=== PATIENT | female | born 1965 | race American Indian/Alaskan Native ===

== ENCOUNTER 2017-04-05 00:58 | Emergency (ER) | payer BC ==
[2017-04-05] MEDS ORDERED: ATIVAN IV ONE (01:40)
[2017-04-05] MEDS ORDERED: ATIVAN ONE (01:40)
--- NOTE | 2017-04-05 02:01 | Emergency Department Report ---
HPI - General Time Seen by Provider: 04/05/17 01:42 - HPI HPI: This is a 52-year-old female presents to the emergency department with complaint of a dislodged tracheostomy tube. Patient has a keloid just under the tracheostomy and says that it was itching in that area and she went to scratch it and somehow it got dislodged. She tried putting it back in place, EMS then tried putting it back in place, but no one was successful. 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 If she sits forwards and holds the tracheostomy tube as far in as possible, she feels as if she is able to breathe fine. ED Past Medical Hx - Past Medical History Hx Hypertension: Yes Hx Diabetes: Yes Hx Arthritis: Yes Hx Asthma: Yes Hx COPD: No Additional medical history: neuropathy - Surgical History Additional Surgical History: thyroid - Social History Smoking Status: Never Smoker - Medications Home Medications: Home Medications Medication Instructions Recorded Confirmed Last Taken Type Acetaminophen [Acetaminophen 650 mg CA Q6H PRN #1 supp.rect 04/06/14 Unknown Rx SUPPOS] ALPRAZolam [Xanax TAB] 0.25 mg PO BID PRN #10 tablet 04/11/14 Unknown Rx ED Review of Systems ROS: Stated complaint: DISLODGED TRACH TUBE Other details as noted in HPI Comment: All other systems reviewed and negative Constitutional: denies: chills, fever Eyes: denies: eye pain, eye discharge, vision change ENT: other (dislodged tracheostomy tube). denies: ear pain Respiratory: shortness of breath. denies: cough, wheezing Cardiovascular: denies: chest pain, palpitations Gastrointestinal: denies: abdominal pain, nausea, diarrhea Genitourinary: denies: urgency, dysuria, discharge Musculoskeletal: denies: back pain, joint swelling, arthralgia Skin: denies: rash, lesions Neurological: denies: headache, weakness, paresthesias Physical Exam - Physical Exam Physical Exam: GENERAL: The patient is well-developed well-nourished. HENT: Normocephalic. Atraumatic. Patient has moist mucous membranes. EYES: Extraocular motions are intact. Pupils equal reactive to light bilaterally. NECK: Supple. Trachea is midline. There is a small keloid and/or soft tissue growth just underneath or growing into her tracheostomy. There is a size 4 Shiley tube that is partially inside of the tracheostomy. CHEST/LUNGS: Clear to auscultation. There is no respiratory distress noted. HEART/CARDIOVASCULAR: Regular. There is no tachycardia. There is no murmur. ABDOMEN: Abdomen is soft, nontender. Patient has normal bowel sounds. There is no abdominal distention. SKIN: Skin is warm and dry. NEURO: The patient is awake, alert, and oriented. The patient is cooperative. The patient has no focal neurologic deficits. The patient has normal speech. MUSCULOSKELETAL: There is no tenderness or deformity. There is no limitation range of motion. There is no evidence of acute injury. ED Course - Consultations Consultation #1: I spoke with Dr. Romero, airline customer service agent at [place], who feels it is prudent to send the patient to [facility] for further evaluation where they can scope the tracheostomy or at least do an evaluation and if she requires admission that her airline customer service agent goes there. The transfer center then spoke with a emergency physician who did not require physician to physician contact. 04/05/17 03:07 - Procedure Description Procedures done: Tracheostomy tube replacement was done. The patient was laid in a semi-recumbent position. Her 4 Shiley tube was taken out. I attempted to place a new uncuffed 4 Shiley tube but I was unable to find the tunnel into the trachea. We are able to find the tunnel using a bougie and a small catheter but just as the tunnel was found into the trachea, the patient started complaining of shortness of breath and appeared to have some hypoxia. This only lasted for a few seconds and the trachea was covered and the patient received a nonrebreather and her pulse ox went up to 100%. The patient was given some time and a small amount of Ativan and another attempt was made. This time the tunnel into the trachea appeared to be found and I was able to get the 4 Shiley uncuffed tube all the way in to it's hub. With this attempt there was no signs of hypoxia or shortness of breath. Placement into the trachea was confirmed with x-ray. There was a very mild amount of bleeding between the 2 attempts but otherwise no obvious complications and the patient tolerated this procedure well. ED Medical Decision Making - Radiology Data Radiology results: image reviewed interpreted by me: Chest x-ray shows a tracheostomy tube in appropriate position. No pneumothorax. Otherwise appears to be a normal examination. - Medical Decision Making The patient originally presented because her tracheostomy tube was partially dislodged. Vital signs were good and pulse ox was in the high 90s. As long as the patient was sitting forward and holding the tracheostomy tube she did not appear to have any shortness of breath. We confirmed that the tube was a 4 Shiley uncuffed and went to get a new one for her. As per the procedural section, 2 different attempts were made to get the tube replaced. The first one was unsuccessful as she began having some shortness of breath and transient hypoxia just as we found the tunnel into the trachea. She was then given a little bit of anxiety medication and supplemental oxygen. Second attempt appeared successful. However whenever the patient scratches her neck, moves her head, or coughs, D tracheostomy tube appears to dislodge to some extent. We asked if this was an appropriate size for her and she says that she had a 6 Shiley tube previously but there were complications with it and that she needs this size. X-ray appears to show that the tube is in appropriate place. However respiratory therapy attempted to bag the tracheostomy tube and had a lot of resistance. The patient had a little bit of stridor as well. For this reason I contacted primary otolaryngology and spoke to Dr. Romero who recommended transfer to the [facility] ER where she can be further evaluated and if admission is required, the patient's airline customer service agent goes to that facility. Patient was monitored in the emergency department after procedure up until she was transported and she had normal, stable vitals and did not appear in any distress. Critical Care Time: No Critical care attestation.: If time is entered above; I have spent that time in minutes in the direct care of this critically ill patient, excluding procedure time. ED Disposition Clinical Impression: Encounter for tracheostomy tube change, Complication of tracheostomy tube Hypertension Qualifiers: Hypertension type: essential hypertension Qualified Code(s): I10 - Essential ( primary) hypertension Disposition: DC/TX-70 ANOTHER TYPE HLTHCARE Is pt being admited?: No Condition: Stable Instructions: Hypertension (ED) Referrals: GHULAM WILKES MD [Primary Care Provider] - 3-5 Days Time of Disposition: 05:35
[2017-04-05] MEDS ORDERED: S2 RACEPINEPHRINE 2.25% IH ONE ×2 (02:10→02:31)
[2017-04-05] MEDS ORDERED: PROVENTIL IH ONE ×2 (02:10→02:32)
--- NOTE | 2017-04-05 02:29 | XRay Report ---
FINAL REPORT EXAM: XR CHEST 1V AP HISTORY: Cough TECHNIQUE: An AP portable view the chest was obtained. FINDINGS: The heart is mildly enlarged. The lungs are not congested. There are no localized infiltrates. There is a tracheostomy tube in good position. The bones and soft tissues otherwise do not show any acute changes. IMPRESSION: Cardiomegaly. No acute process in the chest.
[2017-04-05 04:00] VITALS: BP 163/89
== END 2017-04-05 04:02 | disposition other institution (70) ==
LOC: ED 00:58
DX: J95.03 Malfunction of tracheostomy stoma (principal); I10 Essential (primary) hypertension; E11.9 Type 2 diabetes mellitus without complications; J45.909 Unspecified asthma, uncomplicated
CPT/HCPCS: 71045; 96374; 99285; J2060